=== PATIENT | female | born 1985 | race American Indian/Alaskan Native ===

== ENCOUNTER 2019-07-15 11:38 | Emergency (ER) | payer OTHER, MEDICAID ==
[2019-07-15 11:53] VITALS: BP 138/73
[2019-07-15] MEDS ORDERED: IBUPROFEN 800 MG TAB PO ONE (11:56)
[2019-07-15] MEDS ORDERED: predniSONE 20 MG TAB PO ONE (11:56)
--- NOTE | 2019-07-15 11:58 | Emergency Department Report ---
Minor Respiratory - HPI Chief Complaint: Upper Respiratory Infection Stated Complaint: CHEST/BACK PAIN/COUGH Time Seen by Provider: 07/15/19 11:55 Pain Location: Facial, Throat, Chest Severity: mild Minor Respiratory: Yes Rhinorrhea, Yes Able to Tolerate Fluids, Yes Cough, Yes Fever (SUBJ), No Sore Throat, No Ear Pain, No Sick Contacts, No Hemoptysis, No Chest Pain, No Shortness of Breath Other History: 34 YO AA FEMALE COMES TO ER WITH HEADPAIN AND COUGH SINCE SAT. SHE LEFT WORK EARLY ON SUNDAY. SHE COMES TO ER TODAY, , FOR HER SAME COMPLAINTS OF HEADACHE, COUGH, AND SUBJ FEVER. SHE DID SEE THE WORK NURSE WHO TOLD HER SHE WAS FINE TO WORK; PT DISAGREED SO SHE COMES TODAY ASKING FOR WORK NOTE. AMBULATORY AND IN NAD ON ARRIVAL TO ER ED Review of Systems ROS: Stated complaint: CHEST/BACK PAIN/COUGH Other details as noted in HPI Comment: All other systems reviewed and negative ED Past Medical Hx - Past Medical History Previous Medical History?: No - Surgical History Past Surgical History?: No - Family History Family history: no significant - Social History Smoking Status: Never Smoker Substance Use Type: None - Medications Home Medications: Home Medications Medication Instructions Recorded Confirmed Last Taken Type Azithromycin [Zithromax Z-MALATHI] 250 mg PO DAILY #6 tablet 07/15/19 Unknown Rx Cetirizine HCl [ZyrTEC] 10 mg PO DAILY #30 capsule 07/15/19 Unknown Rx Fluticasone [Flonase] 1 spray NS QDAY #1 bottle 07/15/19 Unknown Rx predniSONE [Deltasone] 20 mg PO DAILY #5 tablet 07/15/19 Unknown Rx Minor Respiratory Exam - Exam General: Vital signs noted. No distress. Alert and acting appropriately. HEENT: Yes Pharyngeal Erythema, Yes Moist Mucous Membranes, Yes Rhinorrhea, Yes Frontal Tenderness, Yes Maxillary Tenderness, No Pharyngeal Exudates, No Conjuctival Injection Ear: Neither TM Bulge, Neither TM Erythema, Neither EAC Pain, Neither EAC Discharge Neck: Yes Supple, No Adenopathy Lungs: Yes Good Air Exchange, Yes Ronchi (CLEAR W COUGH), Yes Stridor, Yes Cough, No Wheezes Heart: Yes Regular Abdomen: Yes Normal Bowel Sounds, No Tenderness Skin: No Rash Neurologic: Alert and oriented, no deficits. Musculoskeletal: Unremarkable. ED Course Vital Signs 07/15/19 11:51 Temperature 98.8 F Pulse Rate 76 Respiratory 20 Rate Blood Pressure 138/73 O2 Sat by Pulse 100 Oximetry ED Medical Decision Making - Medical Decision Making NO FEVER IN ER AMBULATORY TAKING PO NON TOXIC NO CP OR SOB NO RESP HX SUCH ASTHMA DENIES SMOKING MEDICATED IN ER DC HOME WITH DC PLAN OF CARE AND PCP FOLLOW UP Vital Signs 07/15/19 11:51 Temperature 98.8 F Pulse Rate 76 Respiratory 20 Rate Blood Pressure 138/73 O2 Sat by Pulse 100 Oximetry - Differential Diagnosis SIMPLE URI Critical care attestation.: If time is entered above; I have spent that time in minutes in the direct care of this critically ill patient, excluding procedure time. ED Disposition Clinical Impression: URTI (acute upper respiratory infection), Sinusitis, Bronchitis Disposition: DC-01 TO HOME OR SELFCARE Is pt being admited?: No Does the pt Need Aspirin: No Condition: Stable Instructions: Acute Bronchitis (ED) Additional Instructions: MEDS ORDERED TODAY HYDRATE WELL WITH WATER MOTRIN OR TYLENOL FOR PAIN FOLLOW UP WITH PCP SHOULD THIS PERSIST REFERRAL BELOW Prescriptions: predniSONE [Deltasone] 20 mg PO DAILY #5 tablet Fluticasone [Flonase] 1 spray NS QDAY #1 bottle Azithromycin [Zithromax Z-MALATHI] 250 mg PO DAILY #6 tablet Cetirizine HCl [ZyrTEC] 10 mg PO DAILY #30 capsule Referrals: GIUSEPPE GALEAS MD [Staff Physician] - 3-5 Days Forms: Work/School Release Form(ED) Time of Disposition: 11:57
== END 2019-07-15 12:50 | disposition home or self-care (01) ==
LOC: ED 11:38
DX: J06.9 Acute upper respiratory infection, unspecified (principal); J40 Bronchitis, not specified as acute or chronic; J32.9 Chronic sinusitis, unspecified
CPT/HCPCS: 99282; J7512